=== PATIENT | male | born 1960 | race Two or more races ===

== ENCOUNTER 2023-02-19 17:13 | Emergency (ER) | payer MEDICAID ==
[~2023-02-19] VITALS: Ht 180.3 cm; Wt 83.9 kg
[2023-02-19] MEDS ORDERED: ONDANSETRON HCL/PF 4 MG/2 ML VIAL IVP ONE (17:30)
[2023-02-19] MEDS ORDERED: PANTOPRAZOLE 40 MG VIAL IV ONE (17:30)
[2023-02-19] MEDS ORDERED: IV NS 0.9% 1,000 ML BAG IV ONE (17:30)
[2023-02-19 17:31] VITALS: BP 154/98; TEMP 98.1
[2023-02-19] MEDS ORDERED: IBUP-1955 PO ×2 (18:23→20:35)
[2023-02-19] MEDS ORDERED: AMOX-430 PO ×2 (18:23→20:35)
[2023-02-19] MEDS ORDERED: IBUPROFEN 600 MG TABLET PO ONE (18:30)
[2023-02-19] MEDS ORDERED: ACETAMINOPHEN ES 500 MG TABLET ONE (18:32)
[2023-02-19] MEDS ORDERED: IBUPROFEN 600 MG TABLET ONE (18:35)
[2023-02-19 18:40] VITALS: O2SAT 99
== END 2023-02-19 18:41 | disposition home or self-care (01) ==
LOC: ER 17:13
DX: T16.2XXA Foreign body in left ear, initial encounter (principal); I10 Essential (primary) hypertension; Z79.899 Other long term (current) drug therapy; W44.8XXA Other foreign body entering into or through a natural orifice, initial encounter; Y93.89 Activity, other specified; Y92.89 Other specified places as the place of occurrence of the external cause; Y99.8 Other external cause status